=== PATIENT | female | born 1970 ===

== ENCOUNTER 2016-12-18 09:31 | Emergency (ER) | payer OTHER ==
[2016-12-18 09:41] VITALS: BMI 22.6
--- NOTE | 2016-12-18 11:22 | ED PDOC ---
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 She has not been taking any medicine for headache pain. She rates pain as a 7/10 or an 8/10 on most days. She denies any vision changes or dizziness. She does not have a primary doctor and has not been evaluated for this headache as of yet. She states this is not the worst headache of her life. Past Medical History Reviewed: Historical Data, Nursing Documentation, Vital Signs Vital Signs: Last Vital Signs Temp 98.2 F 12/18/16 09:42 Pulse 61 12/18/16 09:42 Resp 18 12/18/16 09:42 BP 138/83 12/18/16 09:42 Pulse Ox 100 12/18/16 09:42 - Medical History PMH: No Chronic Diseases - Surgical History Surgical History: No Surg Hx - Family History Family History: States: No Known Family Hx - Living Arrangements Living Arrangements: With Family - Social History Current smoker - smoking cessation education provided: No Alcohol: None Drugs: Denies - Home Medications Home Medications: Ambulatory Orders Medication Instructions Recorded Metoclopramide [Reglan] 10 mg PO Q6 PRN #20 tab 12/18/16 Naproxen [Naprosyn] 500 mg PO BID #20 tab 12/18/16 Naproxen [Naprosyn] 500 mg PO BID #20 tab 12/18/16 - Allergies Allergies/Adverse Reactions: Allergies Allergy/AdvReac Type Severity Reaction Status Date / Time No Known Allergies Allergy Verified 12/18/16 10:33 Review of Systems ROS Statement: Except As Marked, All Systems Reviewed And Found Negative Constitutional: Negative for: Fever, Chills Cardiovascular: Negative for: Chest Pain Respiratory: Negative for: Cough Gastrointestinal: Negative for: Nausea, Vomiting Neurological: Positive for: Headache (for 2 months). Negative for: Weakness, Change in Speech, Confusion, Seizures, Altered Mental Status, Dizziness Physical Exam - Reviewed Nursing Documentation Reviewed: Yes Vital Signs Reviewed: Yes - Physical Exam Appears: Positive for: Well, Non-toxic, No Acute Distress Head Exam: Positive for: ATRAUMATIC, NORMAL INSPECTION Skin: Positive for: Normal Color. Negative for: Rash Eye Exam: Positive for: Normal appearance, EOMI, PERRL ENT: Positive for: Normal ENT Inspection Neck: Positive for: Normal, Painless ROM Cardiovascular/Chest: Positive for: Regular Rate, Rhythm Respiratory: Positive for: Normal Breath Sounds Neurologic/Psych: Positive for: Alert, Oriented, Motor/Sensory Deficits, Gait ( steady). Negative for: Aphasia, Facial Droop - ECG O2 Sat by Pulse Oximetry: 100 Pulse Ox Interpretation: Normal - Other Rad CT head X-Ray: Read By Radiologist X-Ray Interpretation: no acute finding Medical Decision Making Medical Decision Makin46 year old with persistent headache Plan: IM reglan PO tylenol CT head Patient reports improvement in headache after meds given. Prescription given for Naprosyn and Reglan. Patient was referred to clinic for follow up. Disposition - Clinical Impression Clinical Impression: Headache - Patient ED Disposition Is Patient to be Admitted: No Counseled Patient/Family Regarding: Studies Performed, Diagnosis, Need For Followup, Rx Given - Disposition Referrals: [facility] [Outside] Disposition: Routine/Home Disposition Time: 12:02 Condition: STABLE Additional Instructions: Take prescription medications as directed as needed for headache. Plenty of fluids. Follow-up with clinic in 2-3 days. Prescriptions: Naproxen [Naprosyn] 500 mg PO BID #20 tab Naproxen [Naprosyn] 500 mg PO BID #20 tab Metoclopramide [Reglan] 10 mg PO Q6 PRN #20 tab PRN Reason: Nausea/Vomiting Instructions: General Headache (ED) Forms: [facility] ED School/Work Excuse
--- NOTE | 2016-12-18 11:47 | CT ---
PROCEDURE: CT HEAD WITHOUT CONTRAST. HISTORY: headache COMPARISON: None available. TECHNIQUE: Axial computed tomography images were obtained through the head/brain without intravenous contrast. Radiation dose: Total exam DLP = 773.35 mGy-cm. This CT exam was performed using 1 or more of the following dose reduction techniques: Automated exposure control, adjustment of the mA and/or kV according to patient size, and/or use of iterative reconstruction technique. FINDINGS: HEMORRHAGE: No intracranial hemorrhage. BRAIN: No mass effect or edema. No atrophy or chronic microvascular ischemic changes. VENTRICLES: Unremarkable. No hydrocephalus. CALVARIUM: Unremarkable. PARANASAL SINUSES: Unremarkable as visualized. No significant inflammatory changes. MASTOID AIR CELLS: Unremarkable as visualized. No inflammatory changes. OTHER FINDINGS: None. IMPRESSION: Normal CT of the Head. No intracranial mass, hemorrhage or evidence of acute infarct.
[2016-12-18 12:14] VITALS: BP 128/78; PULSE 78; RESP 20; TEMP 97.5
[2016-12-18 12:19] VITALS: O2SAT 100
== END 2016-12-18 12:14 | disposition home or self-care (01) ==
LOC: H.ER 09:31
DX: R51 Headache (principal)

== ENCOUNTER 2018-02-22 07:28 | Emergency (ER) | payer OTHER, SELFPAY ==
[2018-02-22 07:28] VITALS: BMI 22.6
[2018-02-22 07:37] VITALS: RESP 18; TEMP 98; O2SAT 100
--- NOTE | 2018-02-22 08:24 | ED PDOC ---
Lower Extremity Pain/Injury Time Seen by Provider: 02/22/18 07:49 Chief Complaint (Nursing): Lower Extremity Problem/Injury Chief Complaint (Provider): Left Knee Injury History Per: Patient History/Exam Limitations: no limitations Onset/Duration Of Symptoms: Days (2 weeks ) Current Symptoms Are (Timing): Still Present Additional Complaint(s): 47 year old female presents to the ED complaining of hitting her left knee against the door 2 weeks ago. Patient took Advil but she still has pain when she walks. Also complains of swelling. PMD: No Family Provider - Knee Description Of Injury: Struck Against Object (door) Past Medical History Reviewed: Historical Data, Nursing Documentation, Vital Signs Vital Signs: Last Vital Signs Temp 98 F 02/22/18 07:34 Pulse 67 02/22/18 07:34 Resp 18 02/22/18 07:34 BP 166/78 H 02/22/18 07:34 Pulse Ox 100 02/22/18 07:34 - Medical History PMH: No Chronic Diseases - Surgical History Surgical History: No Surg Hx - Family History Family History: States: Unknown Family Hx - Social History Current smoker - smoking cessation education provided: No Alcohol: None Drugs: Denies - Home Medications Home Medications: Ambulatory Orders Medication Instructions Recorded Metoclopramide [Reglan] 10 mg PO Q6 PRN #20 tab 12/18/16 Naproxen [Naprosyn] 500 mg PO BID #20 tab 12/18/16 Naproxen [Naprosyn] 500 mg PO BID #20 tab 12/18/16 Naproxen 500 mg PO BID #30 tab 02/22/18 - Allergies Allergies/Adverse Reactions: Allergies Allergy/AdvReac Type Severity Reaction Status Date / Time No Known Allergies Allergy Verified 02/22/18 07:34 Review of Systems ROS Statement: Except As Marked, All Systems Reviewed And Found Negative Musculoskeletal: Positive for: Other (left knee pain) Physical Exam - Reviewed Nursing Documentation Reviewed: Yes Vital Signs Reviewed: Yes - Physical Exam Appears: Positive for: Non-toxic, No Acute Distress Head Exam: Positive for: ATRAUMATIC, NORMAL INSPECTION, NORMOCEPHALIC Skin: Positive for: Normal Color, Warm, Dry Extremity: Positive for: Normal ROM (no limitation), Tenderness (mild on left anterior knee), Swelling, Other (stable, normal drawer test on left leg). Negative for: Deformity Neurologic/Psych: Positive for: Alert, Oriented (x3). Negative for: Motor/ Sensory Deficits - ECG O2 Sat by Pulse Oximetry: 100 (RA) Pulse Ox Interpretation: Normal Medical Decision Making Medical Decision Making: Time: 818 Initial Impression: knee pain s/p injury r/o fracture Initial Plan: --Knee 3 Views LT [RAD] --Reevaluation Time: 912 PROCEDURE: Left Knee Radiographs. HISTORY: Pain. COMPARISON: None. FINDINGS: BONES: No acute fracture. JOINTS: Tricompartmental narrowing with mild degenerative spurring. JOINT EFFUSION: Ossific densities within the suprapatellar bursa and at the level of the anterior tibial plateau. OTHER FINDINGS: None. IMPRESSION: No demonstrated fracture or dislocation. Ossific densities within suprapatellar bursa and at the level the anterior tibial plateau. Contrast-enhanced MRI of the left knee can be obtained for further evaluation as clinically warranted. Clinical Impression: left knee pain, bursitis Upon provider evaluation patient is medically stable, and requires no further treatment in the ED at this time. Patient will be discharged. Counseling was provided and all questions were answered regarding diagnosis and need for follow up with PMD. There is agreement to discharge plan. Return if symptoms persist or worsen. Scribe Attestation: Documented by Stefany Ty, acting as a scribe for Angely Randhawa MD Provider Scribe Attestation: All medical record entries made by the Scribe were at my direction and personally dictated by me. I have reviewed the chart and agree that the record accurately reflects my personal performance of the history, physical exam, medical decision making, and the department course for this patient. I have also personally directed, reviewed, and agree with the discharge instructions and disposition. Disposition - Clinical Impression Clinical Impression: Knee pain, left, Bursitis - Patient ED Disposition Is Patient to be Admitted: No Doctor Will See Patient In The: Office Counseled Patient/Family Regarding: Studies Performed, Diagnosis, Need For Followup - Disposition Referrals: Kit Mcmullen III, MD [Staff Provider] - Disposition: Routine/Home Disposition Time: 09:23 Condition: GOOD Additional Instructions: Follow up with orthopedist within 1 week. Take your medications as instructed. Prescriptions: Naproxen 500 mg PO BID #30 tab Instructions: Bursitis, Knee Pain (DC) Print Language: FINNISH
--- NOTE | 2018-02-22 09:15 | RAD ---
PROCEDURE: Left Knee Radiographs. HISTORY: Pain. COMPARISON: None. FINDINGS: BONES: No acute fracture. JOINTS: Tricompartmental narrowing with mild degenerative spurring. JOINT EFFUSION: Ossific densities within the suprapatellar bursa and at the level of the anterior tibial plateau. OTHER FINDINGS: None. IMPRESSION: No demonstrated fracture or dislocation. Ossific densities within suprapatellar bursa and at the level the anterior tibial plateau. Contrast-enhanced MRI of the left knee can be obtained for further evaluation as clinically warranted.
[2018-02-22 09:33] VITALS: BP 129/83; PULSE 62
== END 2018-02-22 09:38 | disposition home or self-care (01) ==
LOC: H.ER 07:28
DX: M70.52 Other bursitis of knee, left knee (principal)